=== PATIENT | female | born 1980 | race Caucasian/White ===

== ENCOUNTER 2017-04-26 09:47 | Emergency (ER) | payer OTHER ==
--- NOTE | 2017-04-26 09:58 | ED Physician Documentation ---
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 Under where her stump goes she has pain and she feels a sore area on the right lateral side of the stump where the prostethesis is rubbing. She also has pain on her left knee she denies any injury or swelling. She denies any redness. 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") Surgeries/Procedures: hysterectomy, other (several knee surgeries ) Immunizations: UTD Allergies/Adverse Reactions: Allergies Allergy/AdvReac Type Severity Reaction Status Date / Time No Known Allergies Allergy Unverified 04/26/17 09:58 Home Medications: Ambulatory Orders Medication Instructions Recorded Ibuprofen [Advil] 400 mg PO PRN PRN 04/26/17 Gabapentin 300 mg PO HS av 04/27/17 - SOCIAL HX Smoking History: cigarettes Alcohol Use: none Drug Use: none - FAMILY HX Family History: No - REVIEWED ASSESSMENTS Nursing Assessment Reviewed: Yes Vitals Reviewed: Yes General Adult Physical Exam - PHYSICAL EXAM GENERAL APPEARANCE: no distress EENT: eye inspection normal RESPIRATORY: no resp distress, chest non-tender, breath sounds normal CVS: reg rate & rhythm, heart sounds normal, equal pulses, no murmur ABDOMEN: soft, no organomegaly, normal bowel sounds BACK: normal inspection SKIN: other (right lateral stump with redness and a small blister. Sensation + Cap refill + - left knee without swelling pain on left side is increased with flexion. No redness noted. ) EXTREMITIES: non-tender, normal range of motion, no edema NEURO: oriented X3, CN's nml as tested, motor nml, sensation nml Discharge Clincal Impression: Cellulitis Qualifiers: Site of cellulitis: extremity Site of cellulitis of extremity: lower extremity Laterality: left Qualified Code(s): L03.116 - Cellulitis of left lower limb Referrals: Primary Doctor,No [REFERRING] - 2 Days Comments: Neurontin 300 mg at bedtime Tylenol or Ibuprofen for pain Elevate Support hose See PCP or return to er for any concerns Condition: Stable Disposition: 01 HOME, SELF-CARE Decision to Admit: NO Date of Decison to Admit: 04/26/17 Decision Time: 10:09
[2017-04-26 10:03] VITALS: BP 145/86
== END 2017-04-26 10:15 | disposition home or self-care (01) ==
LOC: SUPCPDRO 09:47 → ED 09:47
DX: L03.116 Cellulitis of left lower limb (principal)
CPT/HCPCS: 99282

== ENCOUNTER 2017-04-27 15:34 | Outpatient (CLI) | payer OTHER ==
[2017-04-26 10:03] VITALS: BP 145/86
--- NOTE | 2017-04-27 16:19 | Diagnostic Imaging Report ---
PASHA AMARAL [facility] [id number] [facility] [address] [address] Report Submission Date: Apr 27, 2017 4:13:19 PM QUILLER MACHINE FIXER Patient Study Name: GUILLERMO CHAVARRIA Date: Apr 27, 2017 3:47:06 PM QUILLER MACHINE FIXER Modality Type: US Gender: F Description: UNILAT LTD STDY EXT VEINS : 78 Institution: [facility] Physician: PASHA AMARAL Examination: Ultrasound left vein History: LEFT POSTERIOR KNEE PAIN X 3 DAYS (Hx) Findings: Sonographic evaluation of the left lower extremity venous system from the groin to the popliteal fossa inclusive. Normal compressibility. No luminal filling defect. Normal waveforms and response to augmentation. No popliteal region fluid collection. Impression: No evidence for deep venous thrombosis. No suspicious popliteal region fluid collection. Electronically signed on Apr 27, 2017 4:13:19 PM QUILLER MACHINE FIXER by: Stefano KEITH
--- NOTE | 2017-04-27 16:27 | Diagnostic Imaging Report ---
PASHA AMARAL [facility] [id number] [facility] [address] [address] Report Submission Date: Apr 27, 2017 4:24:31 PM SENIOR PATIENT ACCOUNT REPRESENTATIVE Patient Study Name: GUILLERMO CHAVARRIA Date: Apr 27, 2017 4:01:54 PM SENIOR PATIENT ACCOUNT REPRESENTATIVE Modality Type: CR Gender: F Description: LOWER EXTREMITY : 78 Institution: [facility] Physician: PASHA AMARAL Examination: Plain film left knee History: LEFT KNEE PAIN X 3 DAYS ON LATERAL ASPECT, S/P OSTEOMIES, HAS RIGHT BKA (Hx) / LEFT KNEE PAIN, S/P OSTEOMIES, HAS RIGHT BKA (DICOM Hx) / LEFT KNEE PAIN, S/P OSTEOMIES, HAS RIGHT BKA (Pt comments) Findings: 3 views of the left knee demonstrates tibial spine, medial/lateral, and patellar spurring. Joint space narrowing. No fracture. No dislocation. Suprapatellar joint effusion. No posterior soft tissue irregularity. Impression: Articular degenerative changes and joint effusion. No evidence for fracture. Electronically signed on Apr 27, 2017 4:24:31 PM SENIOR PATIENT ACCOUNT REPRESENTATIVE by: Stefano KEITH
== END 2017-04-27 15:35 ==
LOC: RAD 15:34
PROVIDERS: ATTEND Family Medicine
DX: M79.605 Pain in left leg (principal)
CPT/HCPCS: 73562; 93971